=== PATIENT | female | born 1985 | race Caucasian/White ===

== ENCOUNTER → 2021-06-08 | Outpatient (CLI) | payer OTHER | LOC: SJCVCIMAG 14:52 | PROVIDERS: ATTEND Internal Medicine Cardiovascular Disease | DX: R55 Syncope and collapse (principal); E87.6 Hypokalemia ==

== ENCOUNTER → 2021-07-10 | Outpatient (CLI) | payer OTHER ==
[~2021-07-10] VITALS: Ht 160 cm; Wt 114.8 kg
[~2021-07-10] MED LIST: ASA81BEC PO; B-COMPLEX WITH1 EACH PO; DEPO-PROVE150 MG/1 M IM; FLEXERIL PO; KLOR-CON M2020 MEQ PO; SYMBICORT80 MCG/4.1 INH; TOPROL XL25 MG PO; VITAMIN C500 M2 PO; VITAMIN D31250 MCG PO; XARELTO20 MG PO; XOPENEX HFA15 GM INH; ZINC50 MG PO
--- NOTE | ~2021-07-10 | P ---
[facility] [place] [address] PROCEDURE REPORT Name: SHAYAN LINDER Room #: REG [facility]#: [id number] Admission: 07/10/21 Attend Phys: Brett Pool MD Discharge: Date of : 85 Report #: [id number] THIS REPORT FOR: cc: FAM - Family physician unknown FAM - Family physician unknown Brett Pool MD ~ DATE OF SERVICE: 07/10/2021 PREOPERATIVE DIAGNOSES: 1. Supraventricular tachycardia. 2. Wide complex tachycardia. HISTORY: The patient is a 35-year-old with history of palpitations, recent awake overnight monitor showing some short episodes of SVT as well as wide complex tachycardia that was nonsustained. She has had a recent echocardiogram showing a structurally normal heart. She is here for EP study and possible ablation. PROCEDURES PERFORMED: 1. Comprehensive EP study, CPT code 83372. 2. EP with left atrial pacing and recording, CPT code 50430. 3. Program stimulation and pacing after IV drug infusion, CPT code 88644. DESCRIPTION OF PROCEDURE: The patient was brought to the EP laboratory in fasting and sedated state, prepped and draped in a standard fashion. I obtained access in the right femoral vein x4, placing an 8, 2, 6 and a 7-Beninese short sheath using the modified Seldinger technique. Under fluoroscopy, 3 quadripolar catheter was placed at the HRA, HIS and RV positions and a decapolar catheter was placed in the coronary sinus for left atrial pacing and recording. At baseline, the patient was in sinus rhythm with a sinus cycle length of 700 milliseconds, [place] interval 145 milliseconds, QRS duration 95 milliseconds, QT interval 380 milliseconds, AH interval 70 milliseconds, HV interval of 37 milliseconds. Atrial burst pacing was performed and AV block was noted at 300 milliseconds. Atrial ERP was noted at 290 milliseconds to [address] cycle length with double atrial extrastimuli, there was no inducible SVT. Isoproterenol infusion was then initiated at 2 mcg per minute. AV block was noted at 220 milliseconds. With atrial burst pacing, the patient would have frequent episodes of right bundle branch block aberration. There was one episode where with atrial burst pacing, the patient had 2 consecutive AV erick echoes. Atrial ERP was noted at 190 milliseconds at [address] cycle length. Double atrial extrastimuli were delivered and there was no inducible SVT. Next, ventricular pacing was performed. VA block was noted to be less than 270 milliseconds, the VERP was noted at 190 milliseconds at [address] cycle length with ventricular pacing maneuvers, there was no inducible nonsustained VT and there was no ventricular ectopy throughout the procedure. Isoproterenol infusion was then increased to 3 mcg per minute. On isoproterenol, 3 AV block was noted at 200 milliseconds. Aggressive atrial [facility] [address] [place] [address] PROCEDURE REPORT Name: SHAYAN LINDER Connie Room #: REG [facility]#: [id number] Admission: 07/10/21 Attend Phys: Brett Pool MD Discharge: Date of : 85 Report #: [id number] and ventricular pacing maneuvers were performed and no SVT could be induced. Isoproterenol was then turned down to 1 mcg per minute. We tested on this for about 20 minutes and again could not induce any atrial or ventricular arrhythmias and I then went back up on the isoproterenol to 4 mcg per minute and continued aggressive pacing maneuvers. I did not see any recurrent AV erick echoes nor did I see the double AV erick echoes that I saw previously. Isoproterenol was therefore turned off and we continued testing during the washout period and again there were no atrial or ventricular arrhythmias induced. Post-ablation, the patient was in sinus rhythm with a sinus cycle length of 545 milliseconds, [place] interval 140 milliseconds, QRS duration 95 milliseconds, QT interval 360 milliseconds, AH interval 81 milliseconds, HV interval 40 milliseconds. CONCLUSIONS: 1. Comprehensive EP study with and without isoproterenol infusion with no induction of SVT, atrial fibrillation, atrial flutter or any ventricular arrhythmias. 2. Periods of right bundle-branch aberration noted with atrial pacing. 3. No induction of any ventricular arrhythmias. 4. Normal SA erick function. 5. Normal AV erick function. 6. Normal His-Purkinje function. RECOMMENDATIONS: We will have the patient continue to take beta blockers and may need to up titrate on this dose if need be. There are no obvious arrhythmias induced at the time of her ablation, can consider future cardiac monitors in the future. By: [id number] Brett Pool MD /nt
[2021-07-10 07:32] VITALS: BP 132/73
[2021-07-10 08:33] LABS: HEMATOCRIT 39.9 % (37.0-47.0); HEMOGLOBIN 13.7 gm/dL (12.0-15.0); MCH 29.5 pg (26.0-34.0); MCHC 34.2 g/dL (28.0-37.0); MCV 86.3 fL (80.0-100.0); RBC 4.63 mil/uL (4.20-5.00); RDW 13.3 % (10.5-14.5); WBC 9.5 thou/uL (4.0-11.0)
[2021-07-10 08:48] LABS: CALCIUM 9.2 mg/dL (8.5-10.1); CREATININE 0.6 mg/dL (0.6-1.0); POTASSIUM 3.6 mmol/L (3.5-5.1)
[2021-07-10 08:53] LABS: APTT 26.8 Seconds (24.5-32.8); INR 0.98; PROTIME 10.7 Seconds (10.5-12.1)
[2021-07-10 08:54] LABS: ALBUMIN 3.8 g/dL (3.4-5.0); TOTAL BILIRUBIN 1.1 mg/dL (0.2-1.0); TOTAL PROTEIN 7.3 g/dL (6.4-8.2)
== END | disposition home or self-care (01) ==
LOC: CATH 07:26
PROVIDERS: ATTEND Internal Medicine Cardiovascular Disease
DX: I47.1 Supraventricular tachycardia (principal); R55 Syncope and collapse; I49.9 Cardiac arrhythmia, unspecified; Z98.890 Other specified postprocedural states; Z79.899 Other long term (current) drug therapy; Z88.8 Allergy status to other drugs, medicaments and biological substances; Z91.040 Latex allergy status
CPT/HCPCS: 62110; 62900; 70005